=== PATIENT | female | born 1955 | race Caucasian/White ===

== ENCOUNTER → 2016-04-02 | Outpatient (RCR) | payer BC ==
[~2016-04-02] MED LIST: AMITRIPTYLINE H50 M1 PO; CHROMIUM PO; COMBIPATCH TD; CORTEF5 MG PO; CYANOCOBAL1000 MCG/2 IM; CYMBALTA 60MG60 MG PO; DAILY VITAMIN1 TAB PO; DECADRON0.5 MG PO; DIAZEPAM5 MG PO; ESTRACE; FLORINEF ACETA0.1 MG PO; LEVAQUIN 750MG750 M1 PO; LEVOTHYROXIN0.125 MG PO; LISINOPRIL20 MG PO; MAREPA1200 MG PO; NEURONTIN300 MG/CAP PO; NOVOLIN R100 U/ML SQ; NOVOLOG100 U/ML IV; SYNTHROID0.112 MG/T PO; ULTRAM 50MG TAB50 MG PO; VITAMIN E1000 U/CAP PO; ZESTORETIC 12.51 TA1 PO; ZESTRIL5 MG PO
== END | disposition home or self-care (01) ==
LOC: WSOT
DX: Z47.89 Encounter for other orthopedic aftercare (principal); M65.332 Trigger finger, left middle finger

== ENCOUNTER 2016-05-17 11:15 | Outpatient (RCR) | payer BC ==
[~2016-05-17 11:15] MED LIST changes: -AMITRIPTYLINE H50 M1 PO; -CORTEF5 MG PO; -CYANOCOBAL1000 MCG/2 IM; -CYMBALTA 60MG60 MG PO; -DECADRON0.5 MG PO; -FLORINEF ACETA0.1 MG PO; -LEVAQUIN 750MG750 M1 PO; -NEURONTIN300 MG/CAP PO; -NOVOLIN R100 U/ML SQ; -SYNTHROID0.112 MG/T PO; -ZESTORETIC 12.51 TA1 PO
== END 2016-05-23 09:17 | disposition home or self-care (01) ==
LOC: WSOT 11:15
DX: Z47.89 Encounter for other orthopedic aftercare (principal); M65.332 Trigger finger, left middle finger

== ENCOUNTER 2016-06-26 12:59 | Inpatient (IN) | payer BC ==
[2016-06-26] VITALS (271 sets, daily range): BP systolic 103–140; BP diastolic 61–66; PULSE 122–128; TEMP 98.3–98.9; O2SAT 60–100
[~2016-06-26] VITALS: Ht 157.5 cm; Wt 77.9 kg
[2016-06-26 13:50] LABS: ARTERIAL BLD GAS O2 SATURATION 95.4 % (92-100); ARTERIAL BLD GAS TCO2 CT 13.2; ARTERIAL BLOOD GAS BASE EXCESS -9.8 (-2-2); ARTERIAL BLOOD GAS HCO3 12.6 meq/L (22-26); OXYHEMOGLOBIN 94.7 %
[2016-06-26 13:52] LABS: ATS? YES
[2016-06-26 14:14] LABS: HEMATOCRIT 38.9 % (37.0-47.0); HEMOGLOBIN 13.1 g/dl (12.5-16.0); MEAN CELL VOLUME 89 fl (80.0-100.0); MEAN CORPUSCULAR HEMOGLOBIN 30 pg (27.0-31.0); MEAN CORPUSCULAR HGB CONC 34 g/dl (33.0-37.0); MEAN PLATELET VOLUME 10.2 fl (7.4-10.4); PLATELET COUNT 256 K/mm3 (130-400); RED BLOOD COUNT 4.37 M/mm3 (4.10-5.30); REDCELL DISTRIBUTION WIDTH-CV 12.4 % (11.5-14.5); WHITE BLOOD COUNT 10.7 K/mm3 (4.8-10.8)
[2016-06-26 14:18] LABS: ADD PATHOLOGY DIFF REVIEW NO
[2016-06-26 14:35] LABS: ADJUSTED CALCIUM 9.6 mg/dL (8.4-10.2); ALANINE AMINOTRANSFERASE 23 U/L (9-52); ALKALINE PHOSPHATASE 103 U/L (50-136); ANION GAP 24 mmol/L (7-16); BILIRUBIN,TOTAL 0.9 mg/dL (0.0-1.0); BLOOD UREA NITROGEN 16 mg/dL (7-17); CALCIUM 9.6 mg/dL (8.4-10.2); CARBON DIOXIDE 15 mmol/L (22-30); CHLORIDE 98 mmol/L (98-107); CREATININE, serum 0.68 mg/dL (0.52-1.25); GLUCOSE 318 mg/dL (74-106); POTASSIUM 3.6 mmol/L (3.4-5.0); SODIUM 137 mmol/L (137-145); TOTAL PROTEIN 7.3 gm/dL (6.4-8.2)
[2016-06-26 14:38] LABS: PH 5 (5-8); SQUAMOUS EPITHELIAL 0-2 /hpf; URINE APPEARANCE Clear; URINE BACTERIA None Seen /hpf; URINE BILIRUBIN Negative (NEGATIVE); URINE BLOOD 2+ (NEGATIVE); URINE COLOR Yellow; URINE GLUCOSE 3+ (NEGATIVE); URINE KETONE 2+ (NEGATIVE); URINE UROBILINOGEN Negative (NEGATIVE); URINE WBC 0-2 /hpf
[2016-06-26 15:44] LABS: BAND 7 % (0-10); NEUTROPHILS 77 % (42.0-75.2); PLATELET ESTIMATE NORMAL (NORMAL); TOTAL CELLS COUNTED 100
[2016-06-26] MEDS ORDERED: DECADRON0.5 MG PO (15:50)
[2016-06-26] MEDS ORDERED: NEURONTIN300 MG/CAP PO (15:51)
[2016-06-26] MEDS ORDERED: FLORINEF ACETA0.1 MG PO (15:52)
[2016-06-26] MEDS ORDERED: CYMBALTA 60MG60 MG PO (15:52)
[2016-06-26] MEDS ORDERED: SYNTHROID0.112 MG/T PO (15:53)
[2016-06-26] MEDS ORDERED: CYANOCOBAL1000 MCG/2 IM (15:54)
[2016-06-26] MEDS ORDERED: NOVOLIN R100 U/ML SQ (15:55)
[2016-06-26] MEDS ORDERED: CORTEF5 MG PO (15:55)
[2016-06-26] MEDS ORDERED: AMITRIPTYLINE H50 M1 PO (15:56)
[2016-06-26] MEDS ORDERED: ZESTORETIC 12.51 TA1 PO (15:57)
[2016-06-26 19:34] LABS: THYROID STIMULATING HORMONE 0.036 uIU/mL (0.465-4.680)
[2016-06-26 20:40] LABS: MAGNESIUM 1.7 mg/dL (1.6-2.3); PHOSPHOROUS 2.8 mg/dL (2.5-4.5)
[2016-06-26 21:48] LABS: PH 6 (5-8); SQUAMOUS EPITHELIAL 0-2 /hpf; URINE APPEARANCE Clear; URINE BACTERIA None Seen /hpf; URINE BILIRUBIN Negative (NEGATIVE); URINE BLOOD 1+ (NEGATIVE); URINE COLOR Yellow; URINE GLUCOSE 3+ (NEGATIVE); URINE KETONE 2+ (NEGATIVE); URINE RBC 0-2 /hpf; URINE UROBILINOGEN Negative (NEGATIVE); URINE WBC 0-2 /hpf
[2016-06-26 22:30] LABS: CREATININE, serum 0.64 mg/dL (0.52-1.25)
[2016-06-27] VITALS (707 sets, daily range): BP systolic 96–126; BP diastolic 54–83; PULSE 86–164; TEMP 97–98.5; O2SAT 58–100
[2016-06-27 04:30] LABS: CALCIUM 9.1 mg/dL (8.4-10.2); CREATININE, serum 0.56 mg/dL (0.52-1.25); POTASSIUM 3.3 mmol/L (3.4-5.0)
[2016-06-27 11:11] LABS: CALCIUM 9.1 mg/dL (8.4-10.2); CREATININE, serum 0.55 mg/dL (0.52-1.25); POTASSIUM 3.7 mmol/L (3.4-5.0)
[2016-06-27 16:25] LABS: CREATININE, serum 0.74 mg/dL (0.52-1.25); POTASSIUM 3.6 mmol/L (3.4-5.0)
[2016-06-28] VITALS (366 sets, daily range): BP systolic 100–153; BP diastolic 60–93; PULSE 83–109; TEMP 97.5–97.8; O2SAT 61–100
[2016-06-28 00:54] LABS: CALCIUM 9.2 mg/dL (8.4-10.2); CREATININE, serum 0.7 mg/dL (0.52-1.25); POTASSIUM 4.9 mmol/L (3.4-5.0)
[2016-06-28 04:03] LABS: CALCIUM 9.4 mg/dL (8.4-10.2); CREATININE, serum 0.71 mg/dL (0.52-1.25); POTASSIUM 4.5 mmol/L (3.4-5.0)
[2016-06-29 00:07] VITALS: BP 108/61; PULSE 90; TEMP 98
[2016-06-29 04:26] LABS: CALCIUM 9.2 mg/dL (8.4-10.2); CREATININE, serum 0.66 mg/dL (0.52-1.25); POTASSIUM 4.2 mmol/L (3.4-5.0)
[2016-06-29 04:33] VITALS: BP 117/68; PULSE 83; TEMP 98.3
[2016-06-29 07:32] VITALS: BP 133/83; PULSE 84; TEMP 97.7
[2016-06-29] MEDS ORDERED: LEVAQUIN 750MG750 M1 PO (11:12)
== END 2016-06-29 12:19 | disposition home or self-care (01) | DRG 637 ==
LOC: COL.ER 12:59 → IMCU 15:08 → MEDICAL 06-28 15:20
PROVIDERS: Family Medicine; Internal Medicine
DX: E10.10 Type 1 diabetes mellitus with ketoacidosis without coma (principal); J69.0 Pneumonitis due to inhalation of food and vomit; E27.1 Primary adrenocortical insufficiency; E03.9 Hypothyroidism, unspecified; I10 Essential (primary) hypertension; E10.40 Type 1 diabetes mellitus with diabetic neuropathy, unspecified; E86.0 Dehydration; Z79.4 Long term (current) use of insulin; Z96.41 Presence of insulin pump (external) (internal)
CPT/HCPCS: 99223-AI; 99233-AI; 99239; A4315; J0153; J0456; J0696; J1100; J1644; J1720; J1815; J1956; J3480; J7030; J7050; J8540; Q9967

== ENCOUNTER 2016-09-23 14:00 | Outpatient (RCR) | payer BC ==
[~2016-09-23 14:00] MED LIST changes: +AMITRIPTYLINE H50 M1 PO; +CORTEF5 MG PO; +CYANOCOBAL1000 MCG/2 IM; +CYMBALTA 60MG60 MG PO; +DECADRON0.5 MG PO; +FLORINEF ACETA0.1 MG PO; +LEVAQUIN 750MG750 M1 PO; +NEURONTIN300 MG/CAP PO; +NOVOLIN R100 U/ML SQ; +SYNTHROID0.112 MG/T PO; +ZESTORETIC 12.51 TA1 PO
== END 2016-10-06 ==
LOC: WSOT
DX: M25.512 Pain in left shoulder (principal); R60.0 Localized edema; R53.1 Weakness

== ENCOUNTER 2016-10-30 10:45 | Outpatient (RCR) | payer BC | END 2016-11-12 | LOC: WSPT | DX: R26.89 Other abnormalities of gait and mobility (principal); M79.645 Pain in left finger(s); R53.1 Weakness ==

== ENCOUNTER 2016-11-01 10:30 | Outpatient (RCR) | payer BC | END 2016-11-01 16:16 | LOC: WSOT 10:30 | DX: M25.512 Pain in left shoulder (principal); M79.645 Pain in left finger(s) ==

== ENCOUNTER 2017-02-14 15:12 | Inpatient (IN) | payer BC ==
[2017-02-14] VITALS (392 sets, daily range): BP systolic 83–105; BP diastolic 46–51; PULSE 102–118; TEMP 93–97.4; O2SAT 64–100
[~2017-02-14] VITALS: Ht 157.5 cm; Wt 70.3 kg
[2017-02-14 16:17] LABS: BASO # 0.1 (0.0-0.2); BASO % 0.4 % (0.0-2.0); EOS % 0.1 % (0-4.0); GRAN # 15.5 (1.4-6.5); GRAN % 81.1 % (42.2-75.2); HEMATOCRIT 40.4 % (37.0-47.0); HEMOGLOBIN 11.9 g/dl (12.5-16.0); LYMPH # 1.9 (1.2-3.4); LYMPH % 9.7 % (20.0-51.0); MEAN CELL VOLUME 104 fl (80.0-100.0); MEAN CORPUSCULAR HEMOGLOBIN 31 pg (27.0-31.0); MEAN CORPUSCULAR HGB CONC 30 g/dl (33.0-37.0); MEAN PLATELET VOLUME 10.8 fl (7.4-10.4); MONO # 0.8 (0.1-0.6); MONO % 4.2 % (1.7-9.3); PLATELET COUNT 361 K/mm3 (130-400); WHITE BLOOD COUNT 19.1 K/mm3 (4.8-10.8)
[2017-02-14 16:24] LABS: INR 1.1 (0.8-3.0); PROTHROMBIN TIME 12.6 SECONDS (9.7-12.8)
[2017-02-14 16:31] LABS: ADJUSTED CALCIUM 8.8 mg/dL (8.4-10.2); ALBUMIN 3.5 gm/dL (3.5-5.0); BILIRUBIN,TOTAL 0.3 mg/dL (0.0-1.0); CALCIUM 8.4 mg/dL (8.4-10.2); CREATININE, serum 2.67 mg/dL (0.52-1.25); POTASSIUM 4.6 mmol/L (3.4-5.0); TOTAL PROTEIN 5.7 gm/dL (6.4-8.2)
[2017-02-14 17:37] LABS: COLLECTION METHOD CLEAN CATCH
[2017-02-14 17:50] LABS: MUCOUS Present /lpf; PH 5 (5-8); SQUAMOUS EPITHELIAL 0-2 /hpf; URINE APPEARANCE Clear; URINE BACTERIA None Seen /hpf; URINE BILIRUBIN Negative (NEGATIVE); URINE BLOOD 2+ (NEGATIVE); URINE COLOR Straw; URINE GLUCOSE 3+ (NEGATIVE); URINE KETONE 2+ (NEGATIVE); URINE LEUKOCYTE ESTERASE Negative (NEGATIVE); URINE PROTEIN(semi-quant) 1+ (NEGATIVE); URINE RBC 0-2 /hpf; URINE UROBILINOGEN Negative (NEGATIVE)
[2017-02-14] MEDS ORDERED: MOBIC 7.5MG7.5 MG PO (17:55)
[2017-02-15] VITALS (834 sets, daily range): BP systolic 105–142; BP diastolic 39–64; PULSE 115–129; TEMP 97.8–98.2; O2SAT 82–100
[2017-02-15 17:37] LABS: CALCIUM 9.2 mg/dL (8.4-10.2); CREATININE, serum 0.81 mg/dL (0.52-1.25); POTASSIUM 3.4 mmol/L (3.4-5.0)
[2017-02-16] VITALS (507 sets, daily range): BP systolic 117–166; BP diastolic 46–87; PULSE 114–128; TEMP 97.9–99.8; O2SAT 81–100
[2017-02-16 09:10] LABS: BASO % 0.1 % (0.0-2.0); EOS % 0.1 % (0-4.0); GRAN # 13.1 (1.4-6.5); GRAN % 88.3 % (42.2-75.2); LYMPH # 0.7 (1.2-3.4); LYMPH % 4.6 % (20.0-51.0); MEAN CORPUSCULAR HEMOGLOBIN 31 pg (27.0-31.0); MEAN CORPUSCULAR HGB CONC 35 g/dl (33.0-37.0); MONO # 0.9 (0.1-0.6); MONO % 6.3 % (1.7-9.3); RED BLOOD COUNT 3.94 M/mm3 (4.10-5.30); WHITE BLOOD COUNT 14.8 K/mm3 (4.8-10.8)
[2017-02-16 09:11] LABS: HEMATOCRIT 34.6 % (37.0-47.0); MEAN CELL VOLUME 88 fl (80.0-100.0); PLATELET COUNT 127 K/mm3 (130-400)
[2017-02-16 13:23] LABS: CREATININE, serum 0.76 mg/dL (0.52-1.25)
[2017-02-16 13:25] LABS: POTASSIUM 2.9 mmol/L (3.4-5.0)
[2017-02-17] VITALS (184 sets, daily range): BP systolic 14–144; BP diastolic 60–74; PULSE 106–128; TEMP 97.5–99.3; O2SAT 79–100
[2017-02-17 05:51] LABS: ADD PATHOLOGY DIFF REVIEW NO
[2017-02-17 05:55] LABS: HEMOGLOBIN 12.3 g/dl (12.5-16.0); MEAN CELL VOLUME 90 fl (80.0-100.0); MEAN CORPUSCULAR HEMOGLOBIN 30 pg (27.0-31.0); MEAN CORPUSCULAR HGB CONC 33 g/dl (33.0-37.0); MEAN PLATELET VOLUME 10.1 fl (7.4-10.4); PLATELET COUNT 216 K/mm3 (130-400); RED BLOOD COUNT 4.07 M/mm3 (4.10-5.30); WHITE BLOOD COUNT 10.6 K/mm3 (4.8-10.8)
[2017-02-17 06:11] LABS: ADJUSTED CALCIUM 10.4 mg/dL (8.4-10.2); ALBUMIN 3.6 gm/dL (3.5-5.0); BILIRUBIN,TOTAL 0.8 mg/dL (0.0-1.0); CALCIUM 10.1 mg/dL (8.4-10.2); CREATININE, serum 0.7 mg/dL (0.52-1.25); PHOSPHOROUS 1.6 mg/dL (2.5-4.5); POTASSIUM 3.4 mmol/L (3.4-5.0); TOTAL PROTEIN 6.3 gm/dL (6.4-8.2)
[2017-02-17 06:13] LABS: HEMATOCRIT 36.8 % (37.0-47.0)
[2017-02-17 06:59] LABS: BAND 22 % (0-10); LYMPHOCYTE 5 % (20.0-51.0); NEUTROPHILS 69 % (42.0-75.2); PLATELET ESTIMATE NORMAL (NORMAL); TOTAL CELLS COUNTED 100
[2017-02-17 07:01] LABS: TOXIC GRANULATION PRESENT
[2017-02-17 19:15] LABS: CALCIUM 10.3 mg/dL (8.4-10.2); CREATININE, serum 0.71 mg/dL (0.52-1.25); POTASSIUM 3.2 mmol/L (3.4-5.0)
[2017-02-17 20:44] LABS: CALCIUM 8.3 mg/dL (8.4-10.2); CREATININE, serum 0.59 mg/dL (0.52-1.25)
[2017-02-17 20:46] LABS: POTASSIUM 2.7 mmol/L (3.4-5.0)
[2017-02-17 22:40] LABS: CALCIUM 9.8 mg/dL (8.4-10.2); CREATININE, serum 0.66 mg/dL (0.52-1.25); POTASSIUM 3.6 mmol/L (3.4-5.0)
[2017-02-18] VITALS (182 sets, daily range): BP systolic 114–149; BP diastolic 51–70; PULSE 96–122; TEMP 97.4–98.2; O2SAT 39–100
[2017-02-18 00:30] LABS: CALCIUM 10.1 mg/dL (8.4-10.2); CREATININE, serum 0.7 mg/dL (0.52-1.25); POTASSIUM 3.6 mmol/L (3.4-5.0)
[2017-02-18 02:35] LABS: CALCIUM 9.9 mg/dL (8.4-10.2); CREATININE, serum 0.66 mg/dL (0.52-1.25); POTASSIUM 3.7 mmol/L (3.4-5.0)
[2017-02-18 04:27] LABS: BASO % 0.1 % (0.0-2.0); EOS % 0.2 % (0-4.0); GRAN # 8.3 (1.4-6.5); GRAN % 73.7 % (42.2-75.2); HEMOGLOBIN 12.2 g/dl (12.5-16.0); LYMPH # 1.8 (1.2-3.4); LYMPH % 16.3 % (20.0-51.0); MEAN CELL VOLUME 88 fl (80.0-100.0); MEAN CORPUSCULAR HEMOGLOBIN 30 pg (27.0-31.0); MEAN CORPUSCULAR HGB CONC 34 g/dl (33.0-37.0); MEAN PLATELET VOLUME 9.8 fl (7.4-10.4); MONO # 1.1 (0.1-0.6); MONO % 9.3 % (1.7-9.3); PLATELET COUNT 160 K/mm3 (130-400); RED BLOOD COUNT 4.09 M/mm3 (4.10-5.30); WHITE BLOOD COUNT 11.2 K/mm3 (4.8-10.8)
[2017-02-18 04:34] LABS: HEMATOCRIT 35.9 % (37.0-47.0)
[2017-02-18 04:39] LABS: CALCIUM 9.9 mg/dL (8.4-10.2); CREATININE, serum 0.7 mg/dL (0.52-1.25); MAGNESIUM 1.7 mg/dL (1.6-2.3); PHOSPHOROUS 1.8 mg/dL (2.5-4.5); POTASSIUM 3.8 mmol/L (3.4-5.0)
[2017-02-18 06:25] LABS: CREATININE, serum 0.65 mg/dL (0.52-1.25); POTASSIUM 3.8 mmol/L (3.4-5.0)
[2017-02-18 08:44] LABS: CALCIUM 9.9 mg/dL (8.4-10.2); CREATININE, serum 0.65 mg/dL (0.52-1.25); POTASSIUM 3.5 mmol/L (3.4-5.0)
[2017-02-18 10:16] LABS: CALCIUM 9.8 mg/dL (8.4-10.2); CREATININE, serum 0.62 mg/dL (0.52-1.25); POTASSIUM 3.9 mmol/L (3.4-5.0)
[2017-02-18 11:46] LABS: VENOUS BLOOD GAS BE -9.9 (-4-4); VENOUS BLOOD GAS SAO2 76.6 % (60-80)
[2017-02-18 11:47] LABS: VENOUS BLOOD GAS SITE CENTRAL LINE
[2017-02-18 11:59] LABS: CALCIUM 9.4 mg/dL (8.4-10.2); CREATININE, serum 0.6 mg/dL (0.52-1.25); POTASSIUM 4.2 mmol/L (3.4-5.0)
[2017-02-18 14:20] LABS: CALCIUM 9.5 mg/dL (8.4-10.2); CREATININE, serum 0.62 mg/dL (0.52-1.25); POTASSIUM 4.2 mmol/L (3.4-5.0)
== END 2017-02-18 15:35 | disposition short-term general hospital (02) | DRG 637 ==
LOC: COL.ER 15:12 → ICU 16:51
PROVIDERS: Family Medicine; Internal Medicine; Internal Medicine Pulmonary Disease
PROC: 02HV33Z Insertion of Infusion Device into Superior Vena Cava, Percutaneous Approach (ICD-10-PCS; principal; 2017-02-14)
DX: E10.10 Type 1 diabetes mellitus with ketoacidosis without coma (principal); G93.41 Metabolic encephalopathy; R65.11 Systemic inflammatory response syndrome (SIRS) of non-infectious origin with acute organ dysfunction; E27.1 Primary adrenocortical insufficiency; N17.9 Acute kidney failure, unspecified; I47.1 Supraventricular tachycardia; E87.1 Hypo-osmolality and hyponatremia; Z79.4 Long term (current) use of insulin; I10 Essential (primary) hypertension; Z96.41 Presence of insulin pump (external) (internal); E86.0 Dehydration; E87.6 Hypokalemia
CPT/HCPCS: 99223; 99233-AI; 99239; C1751; J1100; J1644; J1720; J1815; J2185; J2543; J3370; J3475; J3480; J7030; J7040; J7050; J7060; J7070